=== PATIENT | female | born 1945 ===

== ENCOUNTER 2018-07-31 08:14 | Outpatient (CLI) | payer MEDICARE | END 2018-07-31 08:15 | disposition home or self-care (01) | LOC: C.USIC 08:14 | DX: R79.89 Other specified abnormal findings of blood chemistry (principal) ==

== ENCOUNTER 2018-08-12 09:36 | Day surgery (SDC) | payer MEDICARE ==
[2018-08-07 14:34] VITALS: BMI 33.4
[2018-08-12 10:26] LABS: BASO % 0.6 % (0.0-2.0); EOS # 0.1 K/uL (0.0-0.7); EOS % 1.2 % (0.0-4.0); HEMOGLOBIN 15.3 g/dL (11.0-16.0); LYMPH # 3.6 K/uL (1.0-4.3); MEAN CELL VOLUME 94.1 fL (81.0-99.0); MEAN CORPUSCULAR HEMOGLOBIN 32.5 pg (27.0-31.0); MEAN CORPUSCULAR HGB CONC 34.6 g/dL (33.0-37.0); MEAN PLATELET VOLUME 9.3 fL (7.2-11.7); MONO # 0.4 K/uL (0.0-0.8); MONO % 4.8 % (0.0-10.0); NEUT # 4.1 K/uL (1.8-7.0); NEUT % 49.4 % (50.0-75.0); NRBC % 0.2 % (0.0-2.0); RBC 4.7 Mil/uL (3.80-5.20); RED CELL DISTRIBUTION WIDTH 12.8 % (11.5-14.5); WHITE BLOOD COUNT 8.2 K/uL (4.8-10.8)
[2018-08-12 10:31] LABS: INR 1.2; PROTHROMBIN TIME 13.5 SECONDS (9.7-12.2)
[2018-08-12 10:32] LABS: PARTIAL THROMBOPLASTIN TIME 51.8 SECONDS (21-34)
[2018-08-12 10:39] LABS: BLOOD UREA NITROGEN 13 mg/dL (7-17); CALCIUM 9.6 mg/dl (8.6-10.4); GFR NON-AFRICAN AMERICAN > 60
[2018-08-12] MEDS ORDERED: Absorbable Gelatin Sponge Size 12-7 ONE (10:56)
[2018-08-12] MEDS ORDERED: Midazolam 2 MG/2 ML VIAL ONE (10:58)
[2018-08-12] MEDS ORDERED: Lidocaine 2% MPF (5 ml) Inj ONE (11:08)
--- NOTE | 2018-08-12 11:17 | CP.SDSHP ---
Same Day Surgery H & P - History Proposed Procedure: US guided liver biopsy Pre-Op Diagnosis: Abnormal LFts - Allergies Allergies: Allergies No Known Allergies Allergy (Verified 08/07/18 14:34) - Physical Exam Mental Status: Alert & Oriented x3 - Impression Impression: Pt with abnormal LFTs referred for liver biopsy. Plan US guided liver biopsy. US performed showed slightly echogenic left liver. Informed consent obtianed and risk of bleeding discussed. Pt. Evaluated Today:Candidate for Anesthesia & Procedure: Yes (ASA 2 Malampati2) - Date & Time Date: 08/12/18 Time: 10:50 Short Stay Discharge - Short Stay Discharge Admitting Diagnosis/Reason for Visit: DX: ELEVATED LFTS - R79.89 Disposition: HOME/ ROUTINE
[2018-08-12] MEDS ORDERED: Oxycodone/Acetaminophen 5/325 mg Tab PO PRN (11:18)
--- NOTE | 2018-08-12 11:19 | PCM.SURG1 ---
Surgeon's Initial Post Op Note - Surgeon's Notes Surgeon: Zeeshan Fragoso MD Count Team Member: NONE Type of Anesthesia: IV Sedation Pre-Operative Diagnosis: Abnormal LFTS Operative Findings: US showed slightly echogenic liver Post-Operative Diagnosis: Abnormal LFTs Operation Performed: US guided liver biopsy. THree 18-g core specimen obtained. Biopsy tract embolized with gelfoam. Specimen/Specimens Removed: 18 g core x 3 Estimated Blood Loss: EBL {In ML}: 5 Blood Products Given: N/A Drains Used: No Drains Post-Op Condition: Good Date of Surgery/Procedure: 08/12/18 Time of Surgery/Procedure: 11:10
--- NOTE | 2018-08-14 12:32 | US ---
PROCEDURE: Date of procedure: 08/12/2018 Procedure: 1. Ultrasound-guided core liver biopsy, CPT 66495 2. Ultrasound guidance for biopsy, 79167 Medications: The patient is sedated by the anesthesiologist. HISTORY: Abnormal LFTs TECHNIQUE: Following informed consent and procedure time-out, the patient was placed supine on bed and limited ultrasound showed a normal appearing left hepatic lobe. After patient abdomen was prepped and draped in the usual sterile fashion and the skin was anesthetized with 2% lidocaine, an 18 gauge core needle was advanced percutaneously under direct ultrasound guidance into the left hepatic lobe. Upon confirmation of needle position, three 18 gauge core specimens were obtained and sent for routine pathology. The biopsy to tract was then embolized with Gelfoam. A post biopsy ultrasound showed no hematoma. A dressing was applied. IMPRESSION: Ultrasound-guided core biopsy left hepatic lobe. There were no immediate complications.
== END 2018-08-12 13:30 | disposition home or self-care (01) ==
LOC: C.SPRAD 09:36
PROVIDERS: ATTEND Radiology Vascular & Interventional Radiology
DX: K75.81 Nonalcoholic steatohepatitis (NASH) (principal); K74.60 Unspecified cirrhosis of liver
CPT/HCPCS: 36415; 47000; 76942; 80048; 85025; 85610; 85730; 88307; 88313; J2250; J3010